=== PATIENT | male | born 1975 | race Hispanic/Latino ===

== ENCOUNTER 2022-04-29 14:37 | Emergency (ER) | payer OTHER ==
[~2022-04-29] VITALS: Ht 149.9 cm; Wt 46.3 kg
[2022-04-29] MEDS ORDERED: PREDNISONE50 MG PO (15:44)
[2022-04-29] MEDS ORDERED: ANAPROX DS550 MG PO (15:44)
== END 2022-04-29 15:57 | disposition home or self-care (01) ==
LOC: ER 14:48
DX: M25.511 Pain in right shoulder (principal); M77.8 Other enthesopathies, not elsewhere classified; S00.00XA Unspecified superficial injury of scalp, initial encounter; W22.8XXA Striking against or struck by other objects, initial encounter; Y92.89 Other specified places as the place of occurrence of the external cause; B19.20 Unspecified viral hepatitis C without hepatic coma
CPT/HCPCS: 99282